=== PATIENT | male | born 1980 | race Hispanic/Latino ===

== ENCOUNTER 2017-11-06 07:56 | Emergency (ER) | payer SELFPAY ==
[2017-11-06 08:15] VITALS: BMI 47.3
[2017-11-06] MEDS ORDERED: TraMADol/Apap 37.5/325 mg Tab PO STA (08:39)
--- NOTE | 2017-11-06 08:47 | ED PDOC ---
Arrival/HPI - General Chief Complaint: Male Genitourinary Time Seen by Provider: 11/06/17 08:12 Historian: Patient - History of Present Illness Narrative History of Present Illness (Text): you were treated in the ED today for hx of kidney stones, recently was diagnosed with left sided 6mm stone with mild urine infection a few days ago in [place] with prescription for percocet, ciprofloxacin, flomax to help pass the stone but you have had some recurrent left sided pain, pain with urination and with nausea/vomiting without bile/blood and otherwise without any headache/ dizziness/difficulty breathing/chest pain/abdomen pain/numbness/tingling/loss of limb function/penile discharge/scrotal/testicular/penile pain. You refused sexual disease testing or treatment. 11/06/17 08:42 Time/Duration: Other (2 days) Past Medical History - Provider Review Nursing Documentation Reviewed: Yes - Travel History Have you recently traveled outside [place] w/in the past 3 mons?: No - Cardiac Hx Cardiac Disorders: Yes Hx Hypertension: Yes - Pulmonary Hx Respiratory Disorders: No - Neurological Hx Neurological Disorder: No - HEENT Hx HEENT Disorder: No - Renal Hx Renal Disorder: No - Endocrine/Metabolic Hx Endocrine Disorders: No - Hematological/Oncological Hx Blood Disorders: No - Integumentary Hx Dermatological Disorder: No - Musculoskeletal/Rheumatological Hx Musculoskeletal Disorders: No - Gastrointestinal Hx Gastrointestinal Disorders: No - Genitourinary/Gynecological Hx Genitourinary Disorders: Yes Other/Comment: kidney stone - Psychiatric Hx Psychophysiologic Disorder: No Hx Substance Use: No - Surgical History Hx Cardiac Catheterization: Yes Hx Coronary Stent: Yes Family/Social History - Physician Review Nursing Documentation Reviewed: Yes Family/Social History: No Known Family HX Smoking Status: cigar Hx Alcohol Use: Yes Frequency of alcohol use: Socially Hx Substance Use: No Allergies/Home Meds Allergies/Adverse Reactions: Allergies NSAIDS (Non-Steroidal Anti-Inflamma Allergy (Verified 11/06/17 08:10) URTICARIA Home Medications: Home Meds Medication Instructions Recorded Confirmed Acetaminophen [Tylenol 325mg tab] 325 mg PO PRN PRN 11/06/17 11/06/17 Atorvastatin [Lipitor] 40 mg PO DAILY 11/06/17 11/06/17 Ciprofloxacin [Cipro] 500 mg PO BID 11/06/17 11/06/17 Clopidogrel [Plavix] 75 mg PO DAILY 11/06/17 11/06/17 Lisinopril [Zestril] 5 mg PO DAILY 11/06/17 11/06/17 Tamsulosin [Flomax] 0.4 mg PO DAILY 11/06/17 11/06/17 oxyCODONE/Acetaminophen [Percocet 1 tab PO PRN PRN 11/06/17 11/06/17 5/325 mg Tab] Review of Systems - Review of Systems Constitutional: Normal Eyes: Normal ENT: Normal Respiratory: Normal Cardiovascular: Normal Gastrointestinal: Normal Genitourinary Male: Dysuria, Other (flank pain on the left) Musculoskeletal: Normal Skin: Normal Neurological: Normal Endocrine: Normal Hemo/Lymphatic: Normal Psychiatric: Normal Physical Exam Vital Signs Reviewed: Yes Vital Signs Temp Pulse Resp BP Pulse Ox 11/06/17 11:29 97.1 F L 79 22 123/74 99 11/06/17 08:15 97.8 F 85 18 132/82 98 Temperature: Afebrile Blood Pressure: Hypertensive Pulse: Regular Respiratory Rate: Normal Appearance: Positive for: Well-Appearing, Non-Toxic, Comfortable Pain Distress: None Mental Status: Positive for: Alert and Oriented X 3 - Systems Exam Head: Present: Atraumatic, Normocephalic Pupils: Present: PERRL Extroacular Muscles: Present: EOMI Conjunctiva: Present: Normal Ears: Present: Normal Mouth: Present: Moist Mucous Membranes Pharnyx: Present: Normal Nose (External): Present: Atraumatic Nose (Internal): Present: Normal Inspection Neck: Present: Normal Range of Motion Respiratory/Chest: Present: Clear to Auscultation, Good Air Exchange Cardiovascular: Present: Regular Rate and Rhythm Abdomen: No: Tenderness, Distention, Normal Bowel Sounds, Peritoneal Signs, Rebound, Guarding, McBurney's Point Tender, Rovsing's Sign Present, Hernias, Feeding Tubes, Ostomy Tubes, Mass/Organomegaly, Scars, Other Back: Present: Normal Inspection Upper Extremity: Present: Normal Inspection Lower Extremity: Present: Normal Inspection Neurological: Present: GCS=15, CN II-XII Intact, Speech Normal, Motor Func Grossly Intact Skin: Present: Warm, Dry, Normal Color Psychiatric: Present: Alert, Oriented x 3, Normal Insight, Normal Concentration Medical Decision Making ED Course and Treatment: you were treated in the ED today for hx of kidney stones, recently was diagnosed with left sided 6mm stone with mild urine infection a few days ago in [place] with prescription for percocet, ciprofloxacin, flomax to help pass the stone but you have had some recurrent left sided pain, pain with urination and with nausea/vomiting without bile/blood and otherwise without any headache/ dizziness/difficulty breathing/chest pain/abdomen pain/numbness/tingling/loss of limb function/penile discharge/scrotal/testicular/penile pain. You refused sexual disease testing or treatment. You were otherwise breathing easily, smiling and talking easily, good strength/sensation, walking easily, clear lungs , no abdomen or flank or back tenderness, no fever temp 97.8, stable heart rate 85, stable breathing rate 18, excellent oxygen level 98% room air, elevated blood pressure 132/82 which we recommend repeat in 2-3 days primary care office to determine further treatment, you have blood tests no infection count 3.3, stable blood level hemoglobin 12/platelets 210, stable chemistry, normal lipase 64, urine test trace sign of infection, ct abdomen/pelvis no acute findings, had a long discussion with you regarding labs/ct radiology testing and due to persistent symptoms completed, tramadol, zofran, morphine, requested additional pain medication and dilouded given, observation done in the ED with improvement , counselled to monitor symptoms and thus discharged home with safe ride as you stated your not driving. 1. Recommend continue your previously prescribed medications as directed. 2. recommend zofran as directed for nausea related symptoms. 3. Recommend follow-up primary care 1-2 days to review symptoms, referral to your urologist 1-2 days to review your symptoms/protein/blood in urine to ensure no complications. 4. If any worsening pain, fever, chills, nausea, vomiting, difficulty breathing, numbness, loss of limb function, pain with urination or any medical condition then return to the ED. 11/06/17 13:57 Reassessment Condition: Re-examined, Improved - Lab Interpretations Lab Results: 11/06/17 10:15 11/06/17 10:15 Lab Results 11/06/17 10:15: Sodium 144, Potassium 4.3, Chloride 105, Carbon Dioxide 32, Anion Gap 12, BUN 9, Creatinine 0.9, Est GFR ( Amer) > 60, Est GFR (Non- Af Amer) > 60, Random Glucose 80, Calcium 9.3, Total Bilirubin 0.6, AST 28, ALT 34, Alkaline Phosphatase 56, Total Protein 7.1, Albumin 4.1, Globulin 3.0, Albumin/Globulin Ratio 1.3, Lipase 64 11/06/17 10:15: Urine Color Light red, Urine Appearance Cloudy, Urine pH 6.0, Ur Specific [place] 1.020, Urine Protein 30 H, Urine Glucose (UA) Negative, Urine Ketones Negative, Urine Blood Large H, Urine Nitrate Negative, Urine Bilirubin Negative, Urine Urobilinogen 0.2, Ur Leukocyte Esterase Trace H, Urine RBC Tntc, Urine WBC 0 - 2, Ur Epithelial Cells 0 - 2, Urine Bacteria Trace 11/06/17 10:15: PT 12.2, INR 1.06, APTT 29.3 11/06/17 10:15: WBC 3.3 L, RBC 4.18, Hgb 12.1 L, Hct 35.6 L, MCV 85.2, MCH 28.9 , MCHC 34.0, RDW 15.1 H, Plt Count 210, MPV 9.6, Gran % 52.1, Lymph % (Auto) 30.7, Bertie % (Auto) 13.5 H, Eos % (Auto) 2.8, Baso % (Auto) 0.9, Gran # 1.70, Lymph # (Auto) 1.0 L, Bertie # (Auto) 0.4, Eos # (Auto) 0.1, Baso # (Auto) 0.03 I have reviewed the lab results: Yes - RAD Interpretation Radiology Orders: 11/06/17 10:12 ABD & PELVIS W/O PO OR IV CONT [CT] 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 No Sleep Is patient sleeping during reassessment? No Presence of Pain Presence of Pain Yes Pain Scale Used Pain Scale Used Numeric Description Description Intermittent Intensity of Pain at present 7 IVP Administration Document 11/06/17 11:40 FREDDIE (Rec: 11/06/17 11:40 FREDDIE [id number]) Charges for Administration # of IVP Administrations 1 Sodium Chloride (Sodium Chloride 0.9%) 1,000 mls @ 1,000 mls/hr IV .Q1H STA Stop: 11/06/17 11:11 Last Admin: 11/06/17 10:22 Dose: 1,000 mls/hr eMAR Start Stop Document 11/06/17 10:22 FREDDIE (Rec: 11/06/17 10:22 FREDDIE [email or web address]) Intravenous Solution Start Date 11/06/17 Start Time 10:22 End Date 11/06/17 End time 11:26 Total Infusion Time 64 Morphine Sulfate (Morphine) 2 mg IVP STAT STA Stop: 11/06/17 10:15 Last Admin: 11/06/17 10:23 Dose: 2 mg MAR Pain Assessment Document 11/06/17 10:23 FREDDIE (Rec: 11/06/17 10:23 FREDDIE [id number]) Pain Reassessment Is this a pain reassessment? No Sleep Is patient sleeping during reassessment? No Presence of Pain Presence of Pain Yes IVP Administration Document 11/06/17 10:23 FREDDIE (Rec: 11/06/17 10:23 FREDDIE [email or web address]) Charges for Administration # of IVP Administrations 1 Morphine Sulfate (Morphine) 2 mg IVP STAT STA Stop: 11/06/17 11:13 Last Admin: 11/06/17 11:25 Dose: Morphine Sulfate (Morphine) 2 mg IV STAT STA Stop: 11/06/17 11:15 Last Admin: 11/06/17 11:21 Dose: 2 mg eMAR Start Stop Document 11/06/17 11:21 SZAjit (Rec: 11/06/17 11:22 FREDDIE [email or web address]) Intravenous Solution Start Date 11/06/17 Start Time 11:22 End Date 11/06/17 End time 11:23 Total Infusion Time 1 MAR Pain Assessment Document 11/06/17 11:21 FREDDIE (Rec: 11/06/17 11:22 FREDDIE [email or web address]) Pain Reassessment Is this a pain reassessment? No Sleep Is patient sleeping during reassessment? No Presence of Pain Presence of Pain Yes Pain Scale Used Pain Scale Used Numeric Description Description Intermittent Intensity of Pain at present 6 Ondansetron HCl (Zofran Odt) 4 mg PO STAT STA Stop: 11/06/17 08:41 Last Admin: 11/06/17 09:00 Dose: 4 mg Ondansetron HCl (Zofran Inj) 4 mg IVP STAT STA Stop: 11/06/17 10:13 Last Admin: 11/06/17 10:23 Dose: 4 mg IVP Administration Document 11/06/17 10:23 FREDDIE (Rec: 11/06/17 10:23 FREDDIE [email or web address]) Charges for Administration # of IVP Administrations 1 Tramadol/Acetaminophen (Ultracet 37.5/325 Mg) 1 tab PO STAT STA Stop: 11/06/17 08:40 Last Admin: 11/06/17 09:00 Dose: 1 tab MAR Pain Assessment Document 11/06/17 09:00 FREDDIE (Rec: 11/06/17 09:20 FREDDIE [id number]) Pain Reassessment Is this a pain reassessment? No Sleep Is patient sleeping during reassessment? No Presence of Pain Presence of Pain Yes Disposition/Present on Arrival - Present on Arrival Any Indicators Present on Arrival: No History of DVT/PE: No History of Uncontrolled Diabetes: No Urinary Catheter: No History of Decub. Ulcer: No History Surgical Site Infection Following: None - Disposition Have Diagnosis and Disposition been Completed?: Yes Diagnosis: Flank pain Disposition: HOME/ ROUTINE Disposition Time: 13:58 Patient Plan: Discharge Condition: IMPROVED Discharge Instructions (ExitCare): Flank Pain Additional Instructions: you were treated in the ED today for hx of kidney stones, recently was diagnosed with left sided 6mm stone with mild urine infection a few days ago in [place] with prescription for percocet, ciprofloxacin, flomax to help pass the stone but you have had some recurrent left sided pain, pain with urination and with nausea/vomiting without bile/blood and otherwise without any headache/ dizziness/difficulty breathing/chest pain/abdomen pain/numbness/tingling/loss of limb function/penile discharge/scrotal/testicular/penile pain. You refused sexual disease testing or treatment. You were otherwise breathing easily, smiling and talking easily, good strength/sensation, walking easily, clear lungs , no abdomen or flank or back tenderness, no fever temp 97.8, stable heart rate 85, stable breathing rate 18, excellent oxygen level 98% room air, elevated blood pressure 132/82 which we recommend repeat in 2-3 days primary care office to determine further treatment, you have blood tests no infection count 3.3, stable blood level hemoglobin 12/platelets 210, stable chemistry, normal lipase 64, urine test trace sign of infection, ct abdomen/pelvis no acute findings, had a long discussion with you regarding labs/ct radiology testing and due to persistent symptoms completed, tramadol, zofran, morphine, requested additional pain medication and dilouded given, observation done in the ED with improvement , counselled to monitor symptoms and thus discharged home with safe ride as you stated your not driving. 1. Recommend continue your previously prescribed medications as directed. 2. recommend zofran as directed for nausea related symptoms. 3. Recommend follow-up primary care 1-2 days to review symptoms, referral to your urologist 1-2 days to review your symptoms/protein/blood in urine to ensure no complications. 4. If any worsening pain, fever, chills, nausea, vomiting, difficulty breathing, numbness, loss of limb function, pain with urination or any medical condition then return to the ED. Prescriptions: Ondansetron ODT [Zofran ODT] 4 mg PO Q8 PRN #20 odt PRN Reason: Nausea/Vomiting Referrals: Ramirez Rojas, [Primary Care Provider] - Follow up with primary Forms: RIWI (Croatian)
[2017-11-06] MEDS ORDERED: Sodium Chloride 0.9% 1,000 ML IV STA (10:12)
[2017-11-06] MEDS ORDERED: Morphine 4 mg/ml ISec IVP STA (10:14)
[2017-11-06 10:55] LABS: BASO # 0.03 K/mm3 (0.0-2.0); BASO % 0.9 % (0.0-3.0); EOS # 0.1 (0.0-0.7); EOS % 2.8 % (1.5-5.0); GRAN # 1.7 (1.4-6.5); GRAN % 52.1 % (50.0-68.0); HEMOGLOBIN 12.1 g/dL (14.0-18.0); LYMPH % 30.7 % (22.0-35.0); MEAN CELL VOLUME 85.2 fl (80.0-105.0); MEAN CORPUSCULAR HEMOGLOBIN 28.9 pg (25.0-35.0); MEAN PLATELET VOLUME 9.6 fl (7.0-11.0); MONO # 0.4 (0.1-0.6); MONO % 13.5 % (1.0-6.0); RBC 4.18 10^6/uL (3.5-6.1); RED CELL DISTRIBUTION WIDTH 15.1 % (11.5-14.5); WHITE BLOOD COUNT 3.3 10^3/ul (4.5-11.0)
[2017-11-06 10:57] LABS: INR 1.06 (0.93-1.08); PARTIAL THROMBOPLASTIN TIME 29.3 Seconds (25.1-36.5); PROTHROMBIN TIME 12.2 SECONDS (9.4-12.5)
[2017-11-06 11:00] LABS: ALB/GLOB RATIO 1.3 (1.1-1.8); ALBUMIN 4.1 g/dL (3.0-4.8); ALT/SGPT 34 U/L (7-56); AST/SGOT 28 U/L (17-59); BLOOD UREA NITROGEN 9 mg/dL (7-21); CALCIUM 9.3 mg/dL (8.4-10.5); GFR AFRICAN-AMERICAN > 60; GFR NON-AFRICAN AMERICAN > 60; LIPASE 64 U/L (23-300)
[2017-11-06 11:05] LABS: URINE BILIRUBIN NEGATIVE (NEGATIVE); URINE BLOOD LARGE (NEGATIVE); URINE GLUCOSE (UA) NEGATIVE (NEGATIVE); URINE LEUKOCYTE ESTERASE TRACE Leu/uL (NEGATIVE); URINE PROTEIN 30 mg/dL (<30 mg/dL); URINE UROBILINOGEN 0.2 E.U./dL (<1 E.U./dL)
[2017-11-06 11:06] LABS: URINE APPEARANCE CLOUDY (CLEAR); URINE COLOR LIGHT RED (YELLOW)
[2017-11-06] MEDS ORDERED: Morphine 2 mg/ml ISec IVP STA (11:12)
[2017-11-06] MEDS ORDERED: Morphine 4 mg/ml ISec IV STA (11:14)
[2017-11-06] MEDS ORDERED: HYDROmorphone 0.5 mg/0.5 ml ISec IVP STA ×2 (11:25→13:56)
[2017-11-06 11:37] LABS: URINE RBC TNTC /hpf (0-2)
[2017-11-06 11:38] LABS: URINE BACTERIA TRACE (NEG); URINE EPITHELIAL CELLS 0 - 2 /hpf (0-5); URINE WBC 0 - 2 /hpf (0-6)
--- NOTE | 2017-11-06 13:39 | CT ---
PROCEDURE: CT Abdomen and Pelvis without intravenous contrast HISTORY: 37yoM, hx of renal stones, with left flank pain. COMPARISON: None. TECHNIQUE: Without contrast.. Contrast Dose: Radiation dose: Total exam DLP = Total exam DLP = 1214 mGy-cm. This CT exam was performed using one or more of the following dose reduction techniques: Automated exposure control, adjustment of the mA and/or kV according to patient size, and/or use of iterative reconstruction technique. FINDINGS: LOWER THORAX: Unremarkable. LIVER: Unremarkable. No gross lesion or ductal dilatation. GALLBLADDER AND BILE DUCTS: Unremarkable. PANCREAS: Unremarkable. No gross lesion or ductal dilatation. SPLEEN: Unremarkable. ADRENALS: Unremarkable. No mass. KIDNEYS AND URETERS: Unremarkable. No hydronephrosis. No solid mass. VASCULATURE: Unremarkable. No aortic aneurysm. BOWEL: Unremarkable. No obstruction. No gross mural thickening. APPENDIX: Unremarkable. Normal appendix. PERITONEUM: Unremarkable. No free fluid. No free air. LYMPH NODES: Unremarkable. No enlarged lymph nodes. BLADDER: Unremarkable. REPRODUCTIVE: Unremarkable. BONES: No acute fracture. OTHER FINDINGS: None. IMPRESSION: No acute findings
[2017-11-06 14:29] VITALS: BP 112/77; PULSE 74; RESP 18; TEMP 98.2; O2SAT 100
== END 2017-11-06 14:41 | disposition home or self-care (01) ==
LOC: ED 07:56
DX: R10.9 Unspecified abdominal pain (principal); I10 Essential (primary) hypertension; F17.210 Nicotine dependence, cigarettes, uncomplicated
CPT/HCPCS: 74176; 80053; 81001; 83690; 85025; 85610; 85730; 87086; 96361; 96374; 96375; 96376; 99285; J1170; J2270; J2405; J7040

== ENCOUNTER 2017-11-10 15:25 | Observation (INO) | payer SELFPAY ==
[2017-11-10 15:26] VITALS: BMI 47.3
--- NOTE | 2017-11-10 15:31 | ED PDOC ---
Arrival/HPI - General Time Seen by Provider: 11/10/17 15:28 Historian: Patient - History of Present Illness Narrative History of Present Illness (Text): 11/10/17 15:31 37 y/o male, no significant pmh, allergic to nsaids, c/o Past Medical History - Cardiac Hx Cardiac Disorders: Yes Hx Hypertension: Yes - Pulmonary Hx Respiratory Disorders: No - Neurological Hx Neurological Disorder: No - HEENT Hx HEENT Disorder: No - Renal Hx Renal Disorder: No - Endocrine/Metabolic Hx Endocrine Disorders: No - Hematological/Oncological Hx Blood Disorders: No - Integumentary Hx Dermatological Disorder: No - Musculoskeletal/Rheumatological Hx Musculoskeletal Disorders: No - Gastrointestinal Hx Gastrointestinal Disorders: No - Genitourinary/Gynecological Hx Genitourinary Disorders: Yes Other/Comment: kidney stone - Psychiatric Hx Psychophysiologic Disorder: No Hx Substance Use: No - Surgical History Hx Cardiac Catheterization: Yes Hx Coronary Stent: Yes Family/Social History Smoking Status: cigar Hx Alcohol Use: Yes Hx Substance Use: No Allergies/Home Meds Allergies/Adverse Reactions: Allergies NSAIDS (Non-Steroidal Anti-Inflamma Allergy (Verified 11/06/17 08:10) URTICARIA Home Medications: Home Meds Medication Instructions Recorded Confirmed Acetaminophen [Tylenol 325mg tab] 325 mg PO PRN PRN 11/06/17 11/06/17 Atorvastatin [Lipitor] 40 mg PO DAILY 11/06/17 11/06/17 Ciprofloxacin [Cipro] 500 mg PO BID 11/06/17 11/06/17 Clopidogrel [Plavix] 75 mg PO DAILY 11/06/17 11/06/17 Lisinopril [Zestril] 5 mg PO DAILY 11/06/17 11/06/17 Tamsulosin [Flomax] 0.4 mg PO DAILY 11/06/17 11/06/17 oxyCODONE/Acetaminophen [Percocet 1 tab PO PRN PRN 11/06/17 11/06/17 5/325 mg Tab] Disposition/Present on Arrival - Present on Arrival History of DVT/PE: No History of Uncontrolled Diabetes: No Urinary Catheter: No History Surgical Site Infection Following: None - Disposition
[2017-11-10] MEDS ORDERED: Sodium Chloride 0.9% 1,000 ML IV STA ×2 (15:56→19:19)
[2017-11-10] MEDS ORDERED: cefTRIAXone 1 gm 1 GM/100 ML BAG IVPB STA (15:56)
[2017-11-10] MEDS ORDERED: Morphine 4 mg/ml ISec IVP STA (15:56)
--- NOTE | 2017-11-10 15:56 | ED PDOC ---
Arrival/HPI - General Chief Complaint: Male Genitourinary Time Seen by Provider: 11/10/17 15:28 Historian: Patient - History of Present Illness Narrative History of Present Illness (Text): 11/10/17 15:50 37 y/o male, pmh including uric acid renal stone, allergic to nsaids?, c/o lt. flank pain with urinary symptoms started today. Pt. stated that he was had a ureter stent placed by Dr. Inman (urologist) from the [facility] yesterday, discharge home with the bactrim ds which the urine culture from this ER with urine culture show +streptococcus which is sensitive to the rocephine and penicillin class, here today because he has lt. flank pain pain with urinary symptoms plus nausea/vomiting, no penile discharge, no fever or chills, no night sweat, no rash, no palpitation, no other medical or psychological complaints. Past Medical History - Provider Review Nursing Documentation Reviewed: Yes - Infectious Disease Hx of Infectious Diseases: None - Cardiac Hx Cardiac Disorders: Yes Hx Hypertension: Yes - Pulmonary Hx Respiratory Disorders: No - Neurological Hx Neurological Disorder: No - HEENT Hx HEENT Disorder: No - Renal Hx Renal Disorder: No - Endocrine/Metabolic Hx Endocrine Disorders: No - Hematological/Oncological Hx Blood Disorders: No - Integumentary Hx Dermatological Disorder: No - Musculoskeletal/Rheumatological Hx Musculoskeletal Disorders: No - Gastrointestinal Hx Gastrointestinal Disorders: No - Genitourinary/Gynecological Hx Genitourinary Disorders: Yes Other/Comment: kidney stone - Psychiatric Hx Psychophysiologic Disorder: No Hx Substance Use: No - Surgical History Hx Cardiac Catheterization: Yes Hx Coronary Stent: Yes - Anesthesia Hx Anesthesia: Yes Hx Anesthesia Reactions: No Hx Malignant Hyperthermia: No Family/Social History - Physician Review Nursing Documentation Reviewed: Yes Family/Social History: Unknown Family HX Smoking Status: Never Smoked Hx Alcohol Use: Yes Hx Substance Use: No Allergies/Home Meds Allergies/Adverse Reactions: Allergies NSAIDS (Non-Steroidal Anti-Inflamma Allergy (Verified 11/06/17 08:10) URTICARIA Home Medications: Home Meds Medication Instructions Recorded Confirmed Acetaminophen [Tylenol 325mg tab] 325 mg PO PRN PRN 11/06/17 11/10/17 Atorvastatin [Lipitor] 40 mg PO DAILY 11/06/17 11/10/17 Ciprofloxacin [Cipro] 500 mg PO BID 11/06/17 11/10/17 Clopidogrel [Plavix] 75 mg PO DAILY 11/06/17 11/10/17 Lisinopril [Zestril] 5 mg PO DAILY 11/06/17 11/10/17 Tamsulosin [Flomax] 0.4 mg PO DAILY 11/06/17 11/10/17 oxyCODONE/Acetaminophen [Percocet 1 tab PO PRN PRN 11/06/17 11/10/17 5/325 mg Tab] Review of Systems - Review of Systems Constitutional: absent: Fatigue, Fevers Eyes: absent: Vision Changes ENT: absent: Hearing Changes Respiratory: absent: SOB, Cough Cardiovascular: absent: Chest Pain Gastrointestinal: Nausea, Vomiting. absent: Abdominal Pain Genitourinary Male: Frequency. absent: Dysuria, Hematuria, Urinary Output Changes Musculoskeletal: Back Pain. absent: Arthralgias, Neck Pain, Joint Swelling Skin: absent: Rash, Pruritis Neurological: absent: Headache, Dizziness Psychiatric: absent: Anxiety, Depression Physical Exam Vital Signs Reviewed: Yes Vital Signs Temp Pulse Resp BP Pulse Ox 11/10/17 15:44 98.4 F 82 18 106/75 96 Temperature: Afebrile Blood Pressure: Normal Pulse: Regular Respiratory Rate: Normal Appearance: Positive for: Non-Toxic, Ill-Appearing, Uncomfortable Pain Distress: Severe Mental Status: Positive for: Alert and Oriented X 3 - Systems Exam Head: Present: Atraumatic, Normocephalic Pupils: Present: PERRL Extroacular Muscles: Present: EOMI Conjunctiva: Present: Normal Mouth: Present: Moist Mucous Membranes Neck: Present: Normal Range of Motion Respiratory/Chest: Present: Clear to Auscultation, Good Air Exchange. No: Respiratory Distress, Accessory Muscle Use Cardiovascular: Present: Regular Rate and Rhythm, Normal S1, S2. No: Murmurs Abdomen: Present: Normal Bowel Sounds. No: Tenderness, Distention, Peritoneal Signs, Rebound, Guarding Genitourinary Male: Present: Normal External Genitalia. No: Lesions, Penile Discharge, Testicle Tenderness, Penile Swelling, Testicle Swelling Back: Present: Normal Inspection, CVA Tenderness (left ). No: Midline Tenderness, Paraspinal Tenderness Upper Extremity: Present: Normal Inspection, Normal ROM. No: Cyanosis, Edema Lower Extremity: Present: Normal Inspection, Normal ROM. No: Edema, Deformity Neurological: Present: GCS=15, Speech Normal, Motor Func Grossly Intact, Gait Normal, Memory Normal Skin: Present: Warm, Dry, Normal Color. No: Rashes Psychiatric: Present: Alert, Oriented x 3, Normal Insight, Normal Concentration Medical Decision Making ED Course and Treatment: 11/10/17 16:04 -labs/ua -CT abdomen and pelvis -IV morphine/rocephine/zofran -observe and reassess 11/10/17 17:20 -Labs are non-significant -UA is pending but the urine culture from 4 days ago is positive for streptococcus -CT abdomen and pelvis: Left ureteral stent. No evidence of urinary calculus. Mild splenomegaly. Otherwise unremarkable examination. -Pt. received morphine and dilaudid with limited relief, not able to tolerate po , will admit for IV antibiotic and intractable pain. 11/10/17 17:32 -I spoke to the hospitalist Dr. Gutierrez and the director of graduate medical education, discussed about the case/labs/radiology result, agreed to keep the patient for observation and they will consult with the urologist. -I spoke to the ER attending Dr. Portillo, discussed about the case/labs radiology result, he will put in the admission order. - Lab Interpretations Lab Results: 11/10/17 16:54 11/10/17 16:54 Lab Results 11/10/17 16:54: WBC 4.8 D, RBC 4.84, Hgb 14.2 D, Hct 40.7 L, MCV 84.1, MCH 29.3, MCHC 34.9, RDW 15.2 H, Plt Count 262, MPV 9.3, Gran % 64.0, Lymph % (Auto ) 20.7 L, [place] % (Auto) 10.6 H, Eos % (Auto) 3.9, Baso % (Auto) 0.8, Gran # 3.08 , Lymph # (Auto) 1.0 L, [place] # (Auto) 0.5, Eos # (Auto) 0.2, Baso # (Auto) 0.04 11/10/17 16:54: Sodium 141, Potassium 4.1, Chloride 100, Carbon Dioxide 28, Anion Gap 18, BUN 14, Creatinine 1.0, Est GFR ( Amer) > 60, Est GFR (Non- Af Amer) > 60, Random Glucose 91, Calcium 10.3, Total Bilirubin 0.8, AST 27, ALT 29, Alkaline Phosphatase 81, Total Protein 8.2, Albumin 4.5, Globulin 3.7, Albumin/Globulin Ratio 1.2 I have reviewed the lab results: Yes - RAD Interpretation Radiology Orders: 11/10/17 15:56 ABD & PELVIS W/O PO OR IV CONT [CT] Stat LOWER THORAX: Unremarkable. LIVER: Unremarkable. No gross lesion or ductal dilatation. GALLBLADDER AND BILE DUCTS: Contracted. No calcified stones. PANCREAS: Unremarkable SPLEEN: Mild splenomegaly. The spleen measures 14.7 cm greatest dimension. No focal mass. ADRENALS: Unremarkable. No mass. KIDNEYS AND URETERS: Left ureteral stent. No hydronephrosis. No renal or ureteral calculus appreciated. Unremarkable right kidney. VASCULATURE: Unremarkable. No aortic aneurysm. BOWEL: Unremarkable. No obstruction. No gross mural thickening. APPENDIX: Unremarkable. Normal appendix. PERITONEUM: Unremarkable. No free fluid. No free air. LYMPH NODES: Unremarkable. No enlarged lymph nodes. BLADDER: Unremarkable. REPRODUCTIVE: Normal prostate BONES: No acute fracture. OTHER FINDINGS: None. IMPRESSION: Left ureteral stent. No evidence of urinary calculus. Mild splenomegaly. Otherwise unremarkable examination. 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) Pain Reassessment Is this a pain reassessment? No Presence of Pain Presence of Pain Yes Pain Scale Used Pain Scale Used Numeric Description Description Constant Intensity of Pain at present 10 Acceptable Level of Pain 0-6 IVP Administration Document 11/11/17 13:07 MORE (Rec: 11/11/17 13:[address] [id number]) Charges for Administration # of IVP Administrations 1 Ceftriaxone Sodium (Rocephin 1 Gram Ivpb) 1 gm in 100 mls @ 100 mls/hr IVPB DAILY [facility] PRN Reason: Protocol Last Admin: 11/11/17 09:26 Dose: 100 mls/hr eMAR Start Stop Document 11/11/17 09:26 MORE (Rec: 11/11/17 09:26 MORE [id number]) Intravenous Solution Start Date 11/11/17 Start Time 09:26 Lisinopril (Zestril) 5 mg PO DAILY [facility] Last Admin: 11/11/17 09:26 Dose: Not Given Non-Admin Reason: BP Parameters Not Met [facility] Pulse and Blood Pressure Document 11/11/17 09:26 MORE (Rec: 11/11/17 09:26 MORE [id number]) Pulse Pulse Rate (60-90) 59 Blood Pressure Blood Pressure (100/60-150/90) 108/59 Ondansetron HCl (Zofran Odt) 4 mg PO Q4H PRN PRN Reason: Nausea/Vomiting Pantoprazole Sodium (Protonix Ec Tab) 40 mg PO 0600 [facility] Last Admin: 11/11/17 05:07 Dose: Not Given Non-Admin Reason: Patient Refused Tamsulosin HCl (Flomax) 0.4 mg PO DAILY [facility] Last Admin: 11/11/17 09:21 Dose: 0.4 mg Discontinued Medications Hydromorphone HCl (Dilaudid) 1 mg IVP STAT STA Stop: 11/10/17 17:16 Last Admin: 11/10/17 17:24 Dose: 1 mg [facility] Pain Assessment Document 11/10/17 17:24 OCS (Rec: 11/10/17 17:24 [id number] Pain Reassessment Is this a pain reassessment? Yes Sleep Is patient sleeping during reassessment? No Presence of Pain Presence of Pain Yes Pain Scale Used Pain Scale Used Numeric Location Left, Right or Bilateral Left Pain Location Body Site Groin Description Description Constant Intensity of Pain at present 10 Pain Behavior Guarding Facial Grimacing Aggravating Factors ADL's IVP Administration Document 11/10/17 17:24 OCS (Rec: 11/10/17 17:24 OCS [id number]) Charges for Administration # of IVP Administrations 1 Re-Assess: [facility] Pain Assessment Document 11/10/17 19:40 KP (Rec: 11/11/17 04:22 [id number] Pain Reassessment Is this a pain reassessment? Yes Sleep Is patient sleeping during reassessment? No Presence of Pain Presence of Pain No Hydromorphone HCl (Dilaudid) 1 mg IVP Q4H PRN PRN Reason: Pain, severe (8-10) Last Admin: 11/11/17 09:19 Dose: 1 mg [facility] Pain Assessment Document 11/11/17 09:19 (Rec: 11/11/17 09:20 [id number]) Pain Reassessment Is this a pain reassessment? No Presence of Pain Presence of Pain Yes Pain Scale Used Pain Scale Used Numeric Location Left, Right or Bilateral Left Pain Location Body Site Abdomen Description Description Constant Intensity of Pain at present 10 Acceptable Level of Pain 0-7 Pain Behavior Facial Grimacing IVP Administration Document 11/11/17 09:19 MORE (Rec: 11/11/17 09:[address] [id number]) Charges for Administration # of IVP Administrations 1 Re-Assess: [facility] Pain Assessment Document 11/11/17 10:19 MORE (Rec: 11/11/17 13:[address] [id number]) Pain Reassessment Is this a pain reassessment? Yes Presence of Pain Presence of Pain Yes Pain Scale Used Pain Scale Used Numeric Description Intensity of Pain at present 4 Acceptable Level of Pain 0-6 Ceftriaxone Sodium (Rocephin 1 Gram Ivpb) 1 gm in 100 mls @ 200 mls/hr IVPB STAT STA PRN Reason: Protocol Stop: 11/10/17 16:25 Last Admin: 11/10/17 16:42 Dose: 200 mls/hr eMAR Start Stop Document 11/10/17 16:42 OCS (Rec: 11/10/17 16:42 OCS [id number]) Intravenous Solution Start Date 11/10/17 Start Time 16:42 End Date 11/10/17 End time 17:12 Total Infusion Time 30 Sodium Chloride (Sodium Chloride 0.9%) 1,000 mls @ 999 mls/hr IV .Q1H1M STA Stop: 11/10/17 16:56 Last Admin: 11/10/17 16:42 Dose: 999 mls/hr eMAR Start Stop Document 11/10/17 16:42 OCS (Rec: 11/10/17 16:43 OCS [id number]) Intravenous Solution Start Date 11/10/17 Start Time 16:42 End Date 11/10/17 End time 17:43 Total Infusion Time 61 Sodium Chloride (Sodium Chloride 0.9%) 1,000 mls @ 150 mls/hr IV .Q6H40M STA Stop: 11/11/17 01:58 Last Admin: 11/10/17 20:00 Dose: 150 mls/hr eMAR Start Stop Document 11/10/17 20:00 KP (Rec: 11/10/17 22:[address] [id number]) Intravenous Solution Start Date 11/10/17 Start Time 20:00 Morphine Sulfate (Morphine) 4 mg IVP STAT STA Stop: 11/10/17 15:57 Last Admin: 11/10/17 16:41 Dose: 4 mg [facility] Pain Assessment Document 11/10/17 16:41 OCS (Rec: 11/10/17 16:41 [id number] Pain Reassessment Is this a pain reassessment? No Sleep Is patient sleeping during reassessment? No Presence of Pain Presence of Pain Yes Pain Scale Used Pain Scale Used Numeric Location Left, Right or Bilateral Left Pain Location Body Site Groin Description Description Constant Aggravating Factors ADL's IVP Administration Document 11/10/17 16:41 OCS (Rec: 11/10/17 16:41 OCS [id number]) Charges for Administration # of IVP Administrations 1 Re-Assess: [facility] Pain Assessment Document 11/10/17 19:45 KP (Rec: 11/11/17 04:23 KP [id number]) Pain Reassessment Is this a pain reassessment? Yes Sleep Is patient sleeping during reassessment? No Presence of Pain Presence of Pain No Ondansetron HCl (Zofran Inj) 4 mg IVP STAT STA Stop: 11/10/17 16:01 Last Admin: 11/10/17 16:41 Dose: 4 mg IVP Administration Document 11/10/17 16:41 OCS (Rec: 11/10/17 16:41 OCS [id number]) Charges for Administration # of IVP Administrations 1 - PA / CUTTING MACHINE OPERATOR / Resident Statement MD/DO has reviewed & agrees with the documentation as recorded. Disposition/Present on Arrival - Present on Arrival Any Indicators Present on Arrival: No History of DVT/PE: No History of Uncontrolled Diabetes: No Urinary Catheter: No History of Decub. Ulcer: No History Surgical Site Infection Following: None - Disposition Have Diagnosis and Disposition been Completed?: Yes Diagnosis: Pyelonephritis, Intractable pain Disposition: HOSPITALIZED Disposition Time: 17:19 Patient Plan: Admission, Observation Patient Problems: Current Active Problems Problem Status Onset Intractable pain Acute Pyelonephritis Acute Condition: STABLE
[2017-11-10 17:09] LABS: BASO # 0.04 K/mm3 (0.0-2.0); BASO % 0.8 % (0.0-3.0); EOS # 0.2 (0.0-0.7); EOS % 3.9 % (1.5-5.0); GRAN # 3.08 (1.4-6.5); HEMOGLOBIN 14.2 g/dL (14.0-18.0); LYMPH % 20.7 % (22.0-35.0); MEAN CELL VOLUME 84.1 fl (80.0-105.0); MEAN CORPUSCULAR HEMOGLOBIN 29.3 pg (25.0-35.0); MEAN CORPUSCULAR HGB CONC 34.9 g/dl (31.0-37.0); MEAN PLATELET VOLUME 9.3 fl (7.0-11.0); MONO # 0.5 (0.1-0.6); MONO % 10.6 % (1.0-6.0); RBC 4.84 10^6/uL (3.5-6.1); RED CELL DISTRIBUTION WIDTH 15.2 % (11.5-14.5); WHITE BLOOD COUNT 4.8 10^3/ul (4.5-11.0)
--- NOTE | 2017-11-10 17:10 | CT ---
PROCEDURE: CT Abdomen and Pelvis without intravenous contrast HISTORY: lt. flank pain, lt. ureter sten? COMPARISON: 11/06/2017 TECHNIQUE: Without contrast.. Contrast Dose: 0 Radiation dose: Total exam DLP = Total exam DLP = 1224.86 mGy-cm. This CT exam was performed using one or more of the following dose reduction techniques: Automated exposure control, adjustment of the mA and/or kV according to patient size, and/or use of iterative reconstruction technique. FINDINGS: LOWER THORAX: Unremarkable. LIVER: Unremarkable. No gross lesion or ductal dilatation. GALLBLADDER AND BILE DUCTS: Contracted. No calcified stones. PANCREAS: Unremarkable SPLEEN: Mild splenomegaly. The spleen measures 14.7 cm greatest dimension. No focal mass. ADRENALS: Unremarkable. No mass. KIDNEYS AND URETERS: Left ureteral stent. No hydronephrosis. No renal or ureteral calculus appreciated. Unremarkable right kidney. VASCULATURE: Unremarkable. No aortic aneurysm. BOWEL: Unremarkable. No obstruction. No gross mural thickening. APPENDIX: Unremarkable. Normal appendix. PERITONEUM: Unremarkable. No free fluid. No free air. LYMPH NODES: Unremarkable. No enlarged lymph nodes. BLADDER: Unremarkable. REPRODUCTIVE: Normal prostate BONES: No acute fracture. OTHER FINDINGS: None. IMPRESSION: Left ureteral stent. No evidence of urinary calculus. Mild splenomegaly. Otherwise unremarkable examination.
[2017-11-10] MEDS ORDERED: HYDROmorphone 1 mg/ml ISec IVP STA (17:15)
[2017-11-10 17:26] LABS: ALB/GLOB RATIO 1.2 (1.1-1.8); ALBUMIN 4.5 g/dL (3.0-4.8); ALT/SGPT 29 U/L (7-56); AST/SGOT 27 U/L (17-59); BLOOD UREA NITROGEN 14 mg/dL (7-21); CALCIUM 10.3 mg/dL (8.4-10.5); GFR AFRICAN-AMERICAN > 60; GFR NON-AFRICAN AMERICAN > 60
--- NOTE | 2017-11-10 19:48 | CP.PCM.HP ---
<Romain Hair - Last Filed: 11/10/17 21:04> History of Present Illness - History of Present Illness History of Present Illness: This is a 37 year old gentleman with CAD with stent in LAD 18 months ago, recurent nephrolithiasis with ureteral stent placed yesterday from a urologist in [place]. The patient has a long standing history of kidney stones. He reports coming in to [facility] [facility] on Monday of this week for left flank pain and was discharged with PO ciprofloxacin for suspected UTI. Review of the CT A/P shows no stones or hydronephrosis on 11/10/17. He saw a urologist in [facility] yesterday and got a ureteral stent placed and was prescribed Bactrim DS prophylactically. He further reports that was supposed to have the stent removed at a later time some time in the coming week; however, due " intractable nausea and vomiting" he developed today he was advised by his urologist to go to the ED for suspected ureteral renal colic. In the ED, unfortunately, no urine was collected though the patient was given a dose of Ceftriaxone. The pateint denies fever, chills, but admits to left flank pain with urination. Chart review does indicate the patients urine culture on grew Streptococcus Parasanguinis in 50,000-100,000 CFU along with a UA at that time with small leukoesterase. The patient is now here for intractable nausea, vomiting, and flank pain. In the ED the patient never gave a sample of urine though he was admitted to the medical-surgical floor for "pyelonephritis. " PMH: Coronary artery disease with stent in the LAD, hypertension, renal stones PSH: Right biceps tendon surgery Allergies: NSAID Social: Smoker, drinks, denies illicit drug use Present on Admission - Present on Admission Any Indicators Present on Admission: No Review of Systems - Review of Systems All systems: reviewed and no additional remarkable complaints except (as per HPI ) Past Patient History - Infectious Disease Hx of Infectious Diseases: None - Past Social History Smoking Status: Never Smoked - CARDIAC Hx Cardiac Disorders: Yes Hx Hypertension: Yes - PULMONARY Hx Respiratory Disorders: No - NEUROLOGICAL Hx Neurological Disorder: No - HEENT Hx HEENT Problems: No - RENAL Hx Chronic Kidney Disease: No - ENDOCRINE/METABOLIC Hx Endocrine Disorders: No - HEMATOLOGICAL/ONCOLOGICAL Hx Blood Disorders: No - INTEGUMENTARY Hx Dermatological Problems: No - MUSCULOSKELETAL/RHEUMATOLOGICAL Hx Musculoskeletal Disorders: No - GASTROINTESTINAL Hx Gastrointestinal Disorders: No - GENITOURINARY/GYNECOLOGICAL Hx Genitourinary Disorders: Yes Other/Comment: kidney stone - PSYCHIATRIC Hx Psychophysiologic Disorder: No Hx Substance Use: No - SURGICAL HISTORY Hx Cardiac Catheterization: Yes Hx Coronary Stent: Yes - ANESTHESIA Hx Anesthesia: Yes Hx Anesthesia Reactions: No Hx Malignant Hyperthermia: No Meds Allergies/Adverse Reactions: Allergies Allergy/AdvReac Type Severity Reaction Status Date / Time NSAIDS (Non-Steroidal Allergy URTICARIA Verified 11/06/17 08:10 Anti-Inflamma Physical Exam - Constitutional Appears: Non-toxic, No Acute Distress - Head Exam Head Exam: ATRAUMATIC, NORMOCEPHALIC - Eye Exam Eye Exam: EOMI, Normal appearance - ENT Exam ENT Exam: Mucous Membranes Moist, Normal Oropharynx - Neck Exam Neck exam: Positive for: Normal Inspection - Respiratory Exam Respiratory Exam: Clear to Auscultation Bilateral, NORMAL BREATHING PATTERN. absent: Accessory Muscle Use - Cardiovascular Exam Cardiovascular Exam: RRR, +S1, +S2 - GI/Abdominal Exam GI & Abdominal Exam: Normal Bowel Sounds, Soft - Extremities Exam Extremities exam: Positive for: normal inspection. Negative for: calf tenderness Results - Vital Signs Recent Vital Signs: Last Vital Signs Temp 98.4 F 11/10/17 15:44 Pulse 82 11/10/17 15:44 Resp 18 11/10/17 15:44 BP 106/75 11/10/17 15:44 Pulse Ox 96 11/10/17 15:44 - Labs Result Diagrams: 11/10/17 16:54 11/10/17 16:54 Assessment & Plan - Assessment and Plan (Free Text) Assessment: 37 year old male with a past medical history of kidney stones, multiple admission for renal colic, reported history of CAD coming in with pain after ureteral stent placement. 1) Ureteral stent irritation with possible migration - Morphine 4 mg q4h PRN - Urology consult - UA, mid stream catch to be performed - Urology consulted, Dr. Magdi Medellin 2) CAD - Continue with Aspirin and Plavix 3) Hypertension - Lisinopril 5 mg 4) Drug seeking with the constellation of symptoms of allergy to NSAID, unconfirmable CAD, refusing morphine - Patient was offered morphine IV q4h for pain control. 5) DVT/GI prophylaxis - SCD/Protonix Plan: Case reviewed and discussed with Dr. Moreno - Date & Time Date: 11/10/17 Time: 20:57 <Morenita Moreno - Last Filed: 11/11/17 06:12> Results - Vital Signs Recent Vital Signs: Last Vital Signs Temp 98.4 F 11/10/17 15:44 Pulse 82 11/10/17 15:44 Resp 18 11/10/17 20:00 BP 106/75 11/10/17 15:44 Pulse Ox 96 11/10/17 15:44 - Labs Result Diagrams: 11/10/17 16:54 11/10/17 16:54 Labs: Laboratory Results - last 24 hr 11/10/17 11/10/17 21:23 21:23 Urine Color Light red Urine Appearance Cloudy Urine pH 6.0 Ur Specific [place] 1.025 Urine Protein 100 H Urine Glucose (UA) Negative Urine Ketones Negative Urine Blood Large H Urine Nitrate Negative Urine Bilirubin Negative Urine Urobilinogen 1.0 H Ur Leukocyte Esterase Trace H Urine RBC Tntc Urine WBC 1 - 3 Ur Epithelial Cells 1 - 3 Urine Bacteria Few Urine Opiates Screen Positive H Urine Methadone Screen Negative Ur Barbiturates Screen Negative Ur Phencyclidine Scrn Negative Ur Amphetamines Screen Negative U Benzodiazepines Scrn Negative U Oth Cocaine Metabols Negative U Cannabinoids Screen Negative Attending/Attestation - Attestation I have personally seen and examined this patient.: Yes I have fully participated in the care of the patient.: Yes I have reviewed all pertinent clinical information: Yes Notes (Text): 11/11/17 06:11 Patient was seen when he was in bed # 566-01. Agree with history, physical examination, assessment and plan.
[2017-11-10] MEDS ORDERED: Morphine 4 mg/ml ISec IVP PRN (20:17)
[2017-11-10 21:49] LABS: URINE BILIRUBIN NEGATIVE (NEGATIVE); URINE BLOOD LARGE (NEGATIVE); URINE GLUCOSE (UA) NEGATIVE (NEGATIVE); URINE LEUKOCYTE ESTERASE TRACE Leu/uL (NEGATIVE); URINE PROTEIN 100 mg/dL (<30 mg/dL)
[2017-11-10 21:53] LABS: URINE APPEARANCE CLOUDY (CLEAR); URINE COLOR LIGHT RED (YELLOW)
[2017-11-10] MEDS: HYDROmorphone 1 mg/ml ISec IVP PRN (21:58)
[2017-11-10 22:01] LABS: URINE RBC TNTC /hpf (0-2)
[2017-11-10 22:03] LABS: URINE BACTERIA FEW (NEG)
[2017-11-10 22:08] LABS: BARBITURATES, UR NEGATIVE (NEGATIVE); BENZODIAZEPINES, UR NEGATIVE (NEGATIVE); OPIATES, UR POSITIVE (NEGATIVE); PHENCYCLIDINE, UR NEGATIVE (NEGATIVE)
[2017-11-11] MEDS: HYDROmorphone 1 mg/ml ISec IVP PRN ×3 (01:28→09:19)
[2017-11-11] MEDS ORDERED: Morphine 2 mg/ml ISec IVP PRN (05:00)
[2017-11-11] MEDS ORDERED: Pantoprazole 40 mg EC Tab PO SCH (06:00)
[2017-11-11 08:00] VITALS: RESP 20; TEMP 97.6; O2SAT 99
[2017-11-11] MEDS ORDERED: cefTRIAXone 1 gm 1 GM/100 ML BAG IVPB SCH (10:00)
[2017-11-11] MEDS ORDERED: HYDROmorphone 1 mg/ml ISec IVP PRN (12:53)
[2017-11-11 16:14] VITALS: BP 130/79; PULSE 75
--- NOTE | 2017-11-11 16:35 | CP.PCM.DIS ---
<ShayleeBunny - Last Filed: 11/11/17 16:15> Provider - Provider Date of Admission: 11/10/17 17:36 Attending physician: Shantelle Gutierrez MD Consults: Uro: Lacie Time Spent in preparation of Discharge (in minutes): 65 Diagnosis - Discharge Diagnosis (1) Urinary tract infection Status: Acute Priority: Medium (2) Pain due to ureteral stent Status: Acute Priority: Medium Hospital Course - Lab Results Lab Results: Most Recent Lab Values WBC 4.8 10^3/ul (4.5-11.0) D 11/10/17 16:54 RBC 4.84 10^6/uL (3.5-6.1) 11/10/17 16:54 Hgb 14.2 g/dL (14.0-18.0) D 11/10/17 16:54 Hct 40.7 % (42.0-52.0) L 11/10/17 16:54 MCV 84.1 fl (80.0-105.0) 11/10/17 16:54 MCH 29.3 pg (25.0-35.0) 11/10/17 16:54 MCHC 34.9 g/dl (31.0-37.0) 11/10/17 16:54 RDW 15.2 % (11.5-14.5) H 11/10/17 16:54 Plt Count 262 10^3/uL (120.0-450.0) 11/10/17 16:54 MPV 9.3 fl (7.0-11.0) 11/10/17 16:54 Gran % 64.0 % (50.0-68.0) 11/10/17 16:54 Lymph % (Auto) 20.7 % (22.0-35.0) L 11/10/17 16:54 [place] % (Auto) 10.6 % (1.0-6.0) H 11/10/17 16:54 Eos % (Auto) 3.9 % (1.5-5.0) 11/10/17 16:54 Baso % (Auto) 0.8 % (0.0-3.0) 11/10/17 16:54 Gran # 3.08 (1.4-6.5) 11/10/17 16:54 Lymph # (Auto) 1.0 (1.2-3.4) L 11/10/17 16:54 [place] # (Auto) 0.5 (0.1-0.6) 11/10/17 16:54 Eos # (Auto) 0.2 (0.0-0.7) 11/10/17 16:54 Baso # (Auto) 0.04 K/mm3 (0.0-2.0) 11/10/17 16:54 Sodium 141 mmol/L (132-148) 11/10/17 16:54 Potassium 4.1 mmol/L (3.6-5.0) 11/10/17 16:54 Chloride 100 mmol/L (98-107) 11/10/17 16:54 Carbon Dioxide 28 mmol/L (21-33) 11/10/17 16:54 Anion Gap 18 (10-20) 11/10/17 16:54 BUN 14 mg/dL (7-21) 11/10/17 16:54 Creatinine 1.0 mg/dl (0.8-1.5) 11/10/17 16:54 Est GFR ( Amer) > 60 11/10/17 16:54 Est GFR (Non-Af Amer) > 60 11/10/17 16:54 Random Glucose 91 mg/dL (70-110) 11/10/17 16:54 Calcium 10.3 mg/dL (8.4-10.5) 11/10/17 16:54 Total Bilirubin 0.8 mg/dL (0.2-1.3) 11/10/17 16:54 AST 27 U/L (17-59) 11/10/17 16:54 ALT 29 U/L (7-56) 11/10/17 16:54 Alkaline Phosphatase 81 U/L (38-126) 11/10/17 16:54 Total Protein 8.2 g/dL (5.8-8.3) 11/10/17 16:54 Albumin 4.5 g/dL (3.0-4.8) 11/10/17 16:54 Globulin 3.7 gm/dL 11/10/17 16:54 Albumin/Globulin Ratio 1.2 (1.1-1.8) 11/10/17 16:54 Urine Color Light red (YELLOW) 11/10/17 21:23 Urine Appearance Cloudy (CLEAR) 11/10/17 21:23 Urine pH 6.0 (4.7-8.0) 11/10/17 21:23 Ur Specific [place] 1.025 (1.005-1.035) 11/10/17 21:23 Urine Protein 100 mg/dL (<30 mg/dL) H 11/10/17 21:23 Urine Glucose (UA) Negative mg/dL (NEGATIVE) 11/10/17 21:23 Urine Ketones Negative mg/dL (NEGATIVE) 11/10/17 21:23 Urine Blood Large (NEGATIVE) H 11/10/17 21:23 Urine Nitrate Negative (NEGATIVE) 11/10/17 21:23 Urine Bilirubin Negative (NEGATIVE) 11/10/17 21:23 Urine Urobilinogen 1.0 E.U./dL (<1 E.U./dL) H 11/10/17 21:23 Ur Leukocyte Esterase Trace Afy/uL (NEGATIVE) H 11/10/17 21:23 Urine RBC Tntc /hpf (0-2) 11/10/17 21:23 Urine WBC 1 - 3 /hpf (0-6) 11/10/17 21:23 Ur Epithelial Cells 1 - 3 /hpf (0-5) 11/10/17 21:23 Urine Bacteria Few (NEG) 11/10/17 21:23 Urine Opiates Screen Positive (NEGATIVE) H 11/10/17 21:23 Urine Methadone Screen Negative (NEGATIVE) 11/10/17 21:23 Ur Barbiturates Screen Negative (NEGATIVE) 11/10/17 21:23 Ur Phencyclidine Scrn Negative (NEGATIVE) 11/10/17 21:23 Ur Amphetamines Screen Negative (NEGATIVE) 11/10/17 21:23 U Benzodiazepines Scrn Negative (NEGATIVE) 11/10/17 21:23 U Oth Cocaine Metabols Negative (NEGATIVE) 11/10/17 21:23 U Cannabinoids Screen Negative (NEGATIVE) 11/10/17 21:23 - Hospital Course Hospital Course: This is a 37 year old gentleman with CAD with stent in LAD 18 months ago, recurent nephrolithiasis with ureteral stent placed yesterday from a urologist in [place] (Per patient, Dr. Mike Inman at [facility]). CT A/P in the ER showed the presence of the stent, without signs of obstruction, migration, or perinephric stranding. On a previous ER visit a few days prior, patient did have a urine culture which grew almeida-sensitive strep parasanguinis. Patient was complaining of severe renal colic, nausea, vomiting, and hematuria. Patient was admitted and treated for suspected pyelonephritis (CVA tenderness on exam with previous urine culture positive) with intractable pain, nausea, and vomiting. Throughout admission, patient was demanding escalation of his pain regimen, until he finally had adequate analgesia with dilaudid 1mg Q4. Today, patient's pain, nausea, and vomiting were improving, and his dilaudid was decreased to 0.5mg Q4. Patient again had angry outburst and was demanding reescalation. Patients urologist (Dr. Inman) was contacted, who reported that this is not his patient, but he is a known malingerer in his hospital system, always presenting with the same complaints demanding narcotics. CT of the abdomen was reviewed with Dr. Medellin who again confirmed that the stent was in place, had not migrated, and did not appear to be obstructed, and he recommended outpatient follow up for stent removal. Upon confrontation, patient reported that it was not Dr. Inman who had placed the stent, but "maybe one of his partners" and that he got his previous prescription of oxycodone from [place], as his name did not show up for [place] or [facility] site. Today, patient still has some pain, reportedly controlled with dilaudid. Per nursing staff, patient completed his entire lunch tray without vomiting without the use of antiemetics. Patient denies nausea. Patient is agreeable to go home without a new prescription for narcotics, and agrees with plan to continue PO antibiotics based on prior sensitivities, and to follow up with his urologist within the next week. All questions were answered to his satisfaction, and he was discharged to home. Discharge Exam - Head Exam Head Exam: ATRAUMATIC, NORMOCEPHALIC - Eye Exam Eye Exam: EOMI, Normal appearance, PERRL - ENT Exam ENT Exam: Mucous Membranes Moist - Neck Exam Neck exam: Full Rom, Normal Inspection - Respiratory Exam Respiratory Exam: Clear to PA & Lateral, NORMAL BREATHING PATTERN - Cardiovascular Exam Cardiovascular Exam: RRR, +S1, +S2 - GI/Abdominal Exam GI & Abdominal Exam: Normal Bowel Sounds, Soft. absent: Distended, Firm, Guarding, Rebound, Rigid, Tenderness - Extremities Exam Extremities exam: normal inspection - Back Exam Back exam: CVA tenderness (L). absent: CVA tenderness (R) - Neurological Exam Neurological exam: Alert, CN II-XII Intact, Oriented x3 - Psychiatric Exam Psychiatric exam: Agitated, Normal Affect, Normal Mood - Skin Skin Exam: Dry, Intact Discharge Plan - Discharge Medications Prescriptions: Cephalexin [Keflex] 500 mg PO Q12 #14 capsule - Follow Up Plan Condition: STABLE Disposition: HOME/ ROUTINE Instructions: Urinary Tract Infection, Adult ([place]), Ureteral Stent ([place]) Additional Instructions: 1. Continue to take Keflex 500mg orally twice daily for 7 days 2. Follow up with your urologist within one week 3. Continue to take all other medications as previously prescribed 4. For any new or worsening concerns, contact your PCP immediately or return to the ER <Shantelle Gutierrez - Last Filed: 11/12/17 16:02> Provider - Provider Date of Admission: 11/10/17 17:36 Attending physician: Shantelle Gutierrez MD Hospital Course - Lab Results Lab Results: Micro Results 11/10/17 21:23 Urine Urine Culture - Final Most Recent Lab Values WBC 4.8 10^3/ul (4.5-11.0) D 11/10/17 16:54 RBC 4.84 10^6/uL (3.5-6.1) 11/10/17 16:54 Hgb 14.2 g/dL (14.0-18.0) D 11/10/17 16:54 Hct 40.7 % (42.0-52.0) L 11/10/17 16:54 MCV 84.1 fl (80.0-105.0) 11/10/17 16:54 MCH 29.3 pg (25.0-35.0) 11/10/17 16:54 MCHC 34.9 g/dl (31.0-37.0) 11/10/17 16:54 RDW 15.2 % (11.5-14.5) H 11/10/17 16:54 Plt Count 262 10^3/uL (120.0-450.0) 11/10/17 16:54 MPV 9.3 fl (7.0-11.0) 11/10/17 16:54 Gran % 64.0 % (50.0-68.0) 11/10/17 16:54 Lymph % (Auto) 20.7 % (22.0-35.0) L 11/10/17 16:54 [place] % (Auto) 10.6 % (1.0-6.0) H 11/10/17 16:54 Eos % (Auto) 3.9 % (1.5-5.0) 11/10/17 16:54 Baso % (Auto) 0.8 % (0.0-3.0) 11/10/17 16:54 Gran # 3.08 (1.4-6.5) 11/10/17 16:54 Lymph # (Auto) 1.0 (1.2-3.4) L 11/10/17 16:54 [place] # (Auto) 0.5 (0.1-0.6) 11/10/17 16:54 Eos # (Auto) 0.2 (0.0-0.7) 11/10/17 16:54 Baso # (Auto) 0.04 K/mm3 (0.0-2.0) 11/10/17 16:54 Sodium 141 mmol/L (132-148) 11/10/17 16:54 Potassium 4.1 mmol/L (3.6-5.0) 11/10/17 16:54 Chloride 100 mmol/L (98-107) 11/10/17 16:54 Carbon Dioxide 28 mmol/L (21-33) 11/10/17 16:54 Anion Gap 18 (10-20) 11/10/17 16:54 BUN 14 mg/dL (7-21) 11/10/17 16:54 Creatinine 1.0 mg/dl (0.8-1.5) 11/10/17 16:54 Est GFR ( Amer) > 60 11/10/17 16:54 Est GFR (Non-Af Amer) > 60 11/10/17 16:54 Random Glucose 91 mg/dL (70-110) 11/10/17 16:54 Calcium 10.3 mg/dL (8.4-10.5) 11/10/17 16:54 Total Bilirubin 0.8 mg/dL (0.2-1.3) 11/10/17 16:54 AST 27 U/L (17-59) 11/10/17 16:54 ALT 29 U/L (7-56) 11/10/17 16:54 Alkaline Phosphatase 81 U/L (38-126) 11/10/17 16:54 Total Protein 8.2 g/dL (5.8-8.3) 11/10/17 16:54 Albumin 4.5 g/dL (3.0-4.8) 11/10/17 16:54 Globulin 3.7 gm/dL 11/10/17 16:54 Albumin/Globulin Ratio 1.2 (1.1-1.8) 11/10/17 16:54 Urine Color Light red (YELLOW) 11/10/17 21:23 Urine Appearance Cloudy (CLEAR) 11/10/17 21:23 Urine pH 6.0 (4.7-8.0) 11/10/17 21:23 Ur Specific [place] 1.025 (1.005-1.035) 11/10/17 21:23 Urine Protein 100 mg/dL (<30 mg/dL) H 11/10/17 21:23 Urine Glucose (UA) Negative mg/dL (NEGATIVE) 11/10/17 21:23 Urine Ketones Negative mg/dL (NEGATIVE) 11/10/17 21:23 Urine Blood Large (NEGATIVE) H 11/10/17 21:23 Urine Nitrate Negative (NEGATIVE) 11/10/17 21:23 Urine Bilirubin Negative (NEGATIVE) 11/10/17 21:23 Urine Urobilinogen 1.0 E.U./dL (<1 E.U./dL) H 11/10/17 21:23 Ur Leukocyte Esterase Trace Fay/uL (NEGATIVE) H 11/10/17 21:23 Urine RBC Tntc /hpf (0-2) 11/10/17 21:23 Urine WBC 1 - 3 /hpf (0-6) 11/10/17 21:23 Ur Epithelial Cells 1 - 3 /hpf (0-5) 11/10/17 21:23 Urine Bacteria Few (NEG) 11/10/17 21:23 Urine Opiates Screen Positive (NEGATIVE) H 11/10/17 21:23 Urine Methadone Screen Negative (NEGATIVE) 11/10/17 21:23 Ur Barbiturates Screen Negative (NEGATIVE) 11/10/17 21:23 Ur Phencyclidine Scrn Negative (NEGATIVE) 11/10/17 21:23 Ur Amphetamines Screen Negative (NEGATIVE) 11/10/17 21:23 U Benzodiazepines Scrn Negative (NEGATIVE) 11/10/17 21:23 U Oth Cocaine Metabols Negative (NEGATIVE) 11/10/17 21:23 U Cannabinoids Screen Negative (NEGATIVE) 11/10/17 21:23 Attending/Attestation - Attestation I have personally seen and examined this patient.: Yes I have fully participated in the care of the patient.: Yes I have reviewed all pertinent clinical information, including history, physical exam and plan: Yes Notes (Text): 11/11/17 37 year old male with past medical history of CAD s/p stent and history of nephrolithiasis s/p recent ureteral stent earlier this week from a urologist in [place] presented with flank pain and nausea/vomiting. CT abd/pelvis was obtained which showed presence of stent without any signs of obstruction or stones. He was started on antibiotics after reviewing his prior Ucx. He was on analgesics and antiemetics. Case was discussed with Dr. Medellin as well as Dr. Inman (his private urologist) who both recommended outpatient follow up. Overall his symptoms improved. He is discharged home to follow up with urology. Shantelle Gutierrez MD Hospitalist.
[2017-11-11] MEDS ORDERED: Oxycodone/Acetaminophen 5/325 mg Tab PO PRN (17:04)
== END 2017-11-11 18:39 | disposition home or self-care (01) ==
LOC: ED 15:25 → ERH 17:36 → 5RNO 18:23
PROVIDERS: ADMIT Internal Medicine; ATTEND Internal Medicine
DX: N10 Acute pyelonephritis (principal); I10 Essential (primary) hypertension; N20.0 Calculus of kidney; T83.84XA Pain due to genitourinary prosthetic devices, implants and grafts, initial encounter; Y83.8 Other surgical procedures as the cause of abnormal reaction of the patient, or of later complication, without mention of misadventure at the time of the procedure; I25.10 Atherosclerotic heart disease of native coronary artery without angina pectoris; F17.200 Nicotine dependence, unspecified, uncomplicated; Z76.5 Malingerer [conscious simulation]; Z95.5 Presence of coronary angioplasty implant and graft
CPT/HCPCS: 74176; 80053; 81001; 85025; 87086; 96361; 96365; 96375; 96376; 99285; G0378; G0480; J0696; J1170; J2270; J2405; J7040

== ENCOUNTER 2017-11-13 20:03 | Inpatient (IN) | payer SELFPAY ==
[2017-11-13] MEDS ORDERED: Sodium Chloride 0.9% 1,000 ML IV STA (21:25)
--- NOTE | 2017-11-13 21:25 | ED PDOC ---
Arrival/HPI - General Chief Complaint: GI Problem Time Seen by Provider: 11/13/17 20:42 Historian: Patient - History of Present Illness Narrative History of Present Illness (Text): 11/13/17 21:29 Pt is a 37 yr old male, with past medical history of uric acid renal stone, s/p stent placement and recent admission for intractable uretal pain, presents to the ED with continuous left side flank pain that has continued since his discharge 2 days ago causing him to vomit more than 8x today alone. States that he cannot rest at home without pain; percocet and zofran do not work. Denies groin pain, chest pain, shortness of breath, fever, dysuria, diarrhea, or any other complaints. Time/Duration: < week Symptom Onset: Gradual Symptom Course: Unchanged Quality: Aching, Pressure, Stabbing Severity Level: Moderate Activities at Onset: Rest Context: Home Past Medical History - Provider Review Nursing Documentation Reviewed: Yes - Travel History Have you recently traveled outside [place] w/in the past 3 mons?: No - Infectious Disease Hx of Infectious Diseases: None - Cardiac Hx Cardiac Disorders: Yes Hx Hypertension: Yes - Pulmonary Hx Respiratory Disorders: No - Neurological Hx Neurological Disorder: No - HEENT Hx HEENT Disorder: No - Renal Hx Renal Disorder: No - Endocrine/Metabolic Hx Endocrine Disorders: No - Hematological/Oncological Hx Blood Disorders: No - Integumentary Hx Dermatological Disorder: No - Musculoskeletal/Rheumatological Hx Musculoskeletal Disorders: No - Gastrointestinal Hx Gastrointestinal Disorders: No - Genitourinary/Gynecological Hx Genitourinary Disorders: Yes Other/Comment: kidney stone - Psychiatric Hx Psychophysiologic Disorder: No Hx Substance Use: No - Surgical History Hx Cardiac Catheterization: Yes Hx Coronary Stent: Yes - Anesthesia Hx Anesthesia: Yes Hx Anesthesia Reactions: No Hx Malignant Hyperthermia: No Family/Social History - Physician Review Nursing Documentation Reviewed: Yes Family/Social History: No Known Family HX Smoking Status: cigar Hx Alcohol Use: Yes Hx Substance Use: No Allergies/Home Meds Allergies/Adverse Reactions: Allergies NSAIDS (Non-Steroidal Anti-Inflamma Allergy (Verified 11/06/17 08:10) URTICARIA Home Medications: Home Meds Medication Instructions Recorded Confirmed Acetaminophen [Tylenol 325mg tab] 325 mg PO PRN PRN 11/06/17 11/13/17 Atorvastatin [Lipitor] 40 mg PO DAILY 11/06/17 11/13/17 Clopidogrel [Plavix] 75 mg PO DAILY 11/06/17 11/13/17 Lisinopril [Zestril] 5 mg PO DAILY 11/06/17 11/13/17 Tamsulosin [Flomax] 0.4 mg PO DAILY 11/06/17 11/13/17 oxyCODONE/Acetaminophen [Percocet 1 tab PO PRN PRN 11/06/17 11/13/17 5/325 mg Tab] Review of Systems - Review of Systems Constitutional: Normal Eyes: Normal ENT: Normal Respiratory: Normal Cardiovascular: Normal Gastrointestinal: Normal Genitourinary Male: Normal. absent: Dysuria, Frequency, Hematuria, Urinary Output Changes, Other Musculoskeletal: Back Pain (left sided LBP with referral to the [facility]) Skin: Normal Neurological: Normal Endocrine: Normal Hemo/Lymphatic: Normal Psychiatric: Normal Physical Exam Vital Signs Reviewed: Yes Vital Signs Temp Pulse Resp BP Pulse Ox 11/14/17 02:03 69 18 106/66 98 11/14/17 00:03 66 18 112/63 97 11/13/17 22:03 97.9 F 68 18 115/65 96 11/13/17 20:24 63 18 118/64 99 Temperature: Afebrile Blood Pressure: Normal Pulse: Regular Respiratory Rate: Normal Appearance: Positive for: Non-Toxic, Uncomfortable Pain Distress: Moderate Mental Status: Positive for: Alert and Oriented X 3 - Systems Exam Head: Present: Atraumatic, Normocephalic Pupils: Present: PERRL Extroacular Muscles: Present: EOMI Conjunctiva: Present: Normal Mouth: Present: Moist Mucous Membranes Neck: Present: Normal Range of Motion Respiratory/Chest: Present: Clear to Auscultation, Good Air Exchange. No: Respiratory Distress, Accessory Muscle Use Cardiovascular: Present: Regular Rate and Rhythm, Normal S1, S2. No: Murmurs Abdomen: Present: Tenderness (left sided LBP with referral to the [facility]), Normal Bowel Sounds. No: Distention, Peritoneal Signs, Rebound, Guarding, McBurney's Point Tender, Rovsing's Sign Present, Hernias, Feeding Tubes, Ostomy Tubes, Mass /Organomegaly, Scars, Other Back: Present: Normal Inspection Upper Extremity: Present: Normal Inspection. No: Cyanosis, Edema Lower Extremity: Present: Normal Inspection. No: Edema Neurological: Present: GCS=15, CN II-XII Intact, Speech Normal Skin: Present: Warm, Dry, Normal Color. No: Rashes Psychiatric: Present: Alert, Oriented x 3, Normal Insight, Normal Concentration Medical Decision Making ED Course and Treatment: 11/13/17 21:34 Pt is a 37 yr old male, with past medical history of uric acid renal stone, s/p stent placement and recent admission for intractable uretal pain, presents to the ED with continuous left side flank pain that has continued since his dc 2 days ago causing him to vomit more than 8x today alone. No CVA tenderness, point tenderness on the left flank; the rest of the exam is benign Plan fluids, pain management assess and dispo Progress Note Morphine 4 mg ivp, dilaudid 3 mg ivp and pyridium; no change in pain status discussed case with Dr. Vasquez; given failure to respond to pain management, pt needs to be admitted overnight for observation spoke with resident and Dr. Moreno for confirmation pt informed and will require uro consult in the am 11/14/17 01:10 - Lab Interpretations I have reviewed the lab results: Yes - Medication Orders Current Medication Orders: Discontinued Medications Acetaminophen (Tylenol 325mg Tab) 650 mg PO Q4H PRN PRN Reason: Pain, Mild (1-3) Atorvastatin Calcium (Lipitor) 40 mg PO DAILY [facility] Last Admin: 11/14/17 10:05 Dose: Not Given Non-Admin Reason: Patient Refused Cephalexin Monohydrate (Keflex) 500 mg PO Q12 [facility] PRN Reason: Protocol Last Admin: 11/14/17 10:05 Dose: Not Given Non-Admin Reason: Patient Refused Clopidogrel Bisulfate (Plavix) 75 mg PO DAILY [facility] Last Admin: 11/14/17 10:05 Dose: Not Given Non-Admin Reason: Patient Refused Diphenhydramine HCl (Benadryl) 25 mg PO STAT STA Stop: 11/14/17 02:49 Last Admin: 11/14/17 03:00 Dose: 25 mg Hydromorphone HCl (Dilaudid) 2 mg IVP STAT STA Stop: 11/13/17 23:52 Last Admin: 11/14/17 00:04 Dose: 2 mg MAR Pain Assessment Document 11/14/17 00:04 JOL (Rec: 11/14/17 00:05 JOL [id number]) Pain Reassessment Is this a pain reassessment? Yes Sleep Is patient sleeping during reassessment? No Presence of Pain Presence of Pain Yes Pain Scale Used Pain Scale Used Numeric Description Intensity of Pain at present 9 IVP Administration Document 11/14/17 00:04 JOL (Rec: 11/14/17 00:05 JOL [id number]) Charges for Administration # of IVP Administrations 1 Hydromorphone HCl (Dilaudid) 1 mg IVP STAT STA Stop: 11/14/17 02:49 Last Admin: 11/14/17 03:00 Dose: 1 mg MAR Pain Assessment Document 11/14/17 03:00 TTC (Rec: 11/14/17 03:00 [facility] [id number]) Pain Reassessment Is this a pain reassessment? Yes Sleep Is patient sleeping during reassessment? No Presence of Pain Presence of Pain Yes Location Left, Right or Bilateral Bilateral Pain Location Body Site Abdomen IVP Administration Document 11/14/17 03:00 TTC (Rec: 11/14/17 03:00 [facility] [id number]) Charges for Administration # of IVP Administrations 1 Sodium Chloride (Sodium Chloride 0.9%) 1,000 mls @ 999 mls/hr IV .Q1H1M STA Stop: 11/13/17 22:25 Last Admin: 11/13/17 21:51 Dose: 999 mls/hr eMAR Start Stop Document 11/13/17 21:51 JOL (Rec: 11/13/17 21:52 JOL [id number]) Intravenous Solution Start Date 11/13/17 Start Time 21:30 End Date 11/13/17 End time 22:30 Total Infusion Time 60 Sodium Chloride (Sodium Chloride 0.9%) 1,000 mls @ 150 mls/hr IV .Q6H40M [facility] Last Admin: 11/14/17 02:10 Dose: 150 mls/hr eMAR Start Stop Document 11/14/17 02:10 JOL (Rec: 11/14/17 02:32 JOL [id number]) Intravenous Solution Start Date 11/14/17 Start Time 02:10 Lisinopril (Zestril) 5 mg PO DAILY [facility] Last Admin: 11/14/17 10:06 Dose: Not Given Non-Admin Reason: Patient Refused Metoclopramide HCl (Reglan) 10 mg IVP STAT STA Stop: 11/13/17 21:27 Last Admin: 11/13/17 21:53 Dose: Not Given Non-Admin Reason: Patient Refused Morphine Sulfate (Morphine) 2 mg IVP STAT STA Stop: 11/13/17 21:28 Last Admin: 11/13/17 21:30 Dose: 2 mg MAR Pain Assessment Document 11/13/17 21:30 JOL (Rec: 11/13/17 21:52 JOL [id number]) Pain Reassessment Is this a pain reassessment? No Sleep Is patient sleeping during reassessment? No Presence of Pain Presence of Pain Yes Pain Scale Used Pain Scale Used Numeric Description Intensity of Pain at present 9 IVP Administration Document 11/13/17 21:30 JOL (Rec: 11/13/17 21:52 JOL [id number]) Charges for Administration # of IVP Administrations 1 Morphine Sulfate (Morphine) 2 mg IVP STAT STA Stop: 11/13/17 22:29 Ondansetron HCl (Zofran Inj) 8 mg IVP STAT STA Stop: 11/13/17 22:21 Last Admin: 11/13/17 21:55 Dose: 8 mg IVP Administration Document 11/13/17 21:55 JOL (Rec: 11/13/17 22:27 JOL [id number]) Charges for Administration # of IVP Administrations 1 Ondansetron HCl (Zofran Inj) 4 mg IVP Q4H PRN PRN Reason: Nausea/Vomiting Oxycodone/Acetaminophen (Percocet 10/325 Mg Tab) 1 tab PO STAT STA Stop: 11/14/17 13:47 Last Admin: 11/14/17 14:03 Dose: 1 tab MAR Pain Assessment Document 11/14/17 14:03 SML (Rec: 11/14/17 14:03 SML [id number]) Pain Reassessment Is this a pain reassessment? No Sleep Is patient sleeping during reassessment? No Presence of Pain Presence of Pain Yes Location Pain Location Body Site Abdomen Pantoprazole Sodium (Protonix Inj) 40 mg IVP DAILY [facility] Last Admin: 11/14/17 10:06 Dose: Not Given Non-Admin Reason: Patient Refused Phenazopyridine HCl (Pyridium) 200 mg PO STAT STA Stop: 11/13/17 23:55 Last Admin: 11/14/17 00:04 Dose: 200 mg Phenazopyridine HCl (Pyridium) [address] [facility] Last Admin: 11/14/17 14:16 Dose: Not Given Non-Admin Reason: Patient Refused Tamsulosin HCl (Flomax) 0.4 mg PO DAILY [facility] Last Admin: 11/14/17 10:05 Dose: Not Given Non-Admin Reason: Patient Refused Disposition/Present on Arrival - Present on Arrival Any Indicators Present on Arrival: Yes History of DVT/PE: No History of Uncontrolled Diabetes: No Urinary Catheter: No History of Decub. Ulcer: No History Surgical Site Infection Following: None - Disposition Have Diagnosis and Disposition been Completed?: Yes Diagnosis: Intractable abdominal pain, Urinary tract infection, Pain due to ureteral stent Disposition: HOSPITALIZED Disposition Time: 01:13 Patient Plan: Admission Condition: UNKNOWN
[2017-11-13] MEDS ORDERED: Morphine 4 mg/ml ISec IVP STA (21:26)
[2017-11-13] MEDS ORDERED: Morphine 2 mg/ml ISec IVP STA (21:27)
[2017-11-13] MEDS ORDERED: Morphine 2 mg/2 mL syringe ONE (21:32)
[2017-11-13] MEDS ORDERED: HYDROmorphone 1 mg/ml ISec IVP PRN (22:13)
[2017-11-13] MEDS ORDERED: Morphine 2 mg/2 mL syringe IVP STA (22:28)
[2017-11-13] MEDS ORDERED: HYDROmorphone 1 mg/ml ISec IVP STA (23:51)
[2017-11-14] MEDS ORDERED: Oxycodone/Acetaminophen 5/325 mg Tab PO PRN ×2 (01:39→02:00)
[2017-11-14] MEDS ORDERED: HYDROmorphone 1 mg/ml ISec IVP PRN (01:39)
[2017-11-14] MEDS ORDERED: Sodium Chloride 0.9% 1,000 ML IV SCH (01:45)
--- NOTE | 2017-11-14 02:05 | CP.PCM.HP ---
<Stevenson Biswas - Last Filed: 11/14/17 01:50> History of Present Illness - History of Present Illness History of Present Illness: CC: Flank pain Pt is a 37 yo M with PMH of CAD s/p stent of mid-LAD, HTN, HLD, and recurrent nephrolithiasis [place] [facility] due to intractable left flank pain. Patient had stent placed in left ureter on 11/09/17 in [place] due to a 7-8 mm ureter stone. Pt states that stone was removed via lithotripsy, but stent was placed due to ureteral inflammation. Pt was admitted to [facility] on 11/10/17 due to intractable left flank pain, nausea, and vomiting. Patient was discharged the day after and intstructed to follow up with his urologist in [place]. Patient was also given a 7 day course of Keflex due to UTI found on UA, which he has completed 2 days of. Pt states that pain was relatively unchanged on discharge and has worsened up until today. Pt complains of intermittent nausea and vomiting 2/2 left flank pain that radiates down left groin as well as hematuria and dysuria. Pt denies any discharge. Pt states that he has a follow up visit with his urologist on Monday11/15/17 for removal of the stent, but due to increasing pain was advised to proceed to ED by his urologist. Pt denied CP, SOB , fever, chills, DARLING, or dizziness. PMD: Devaughn PMH: CAD s/p stent of mid-LAD, HTN, HLD, and recurrent nephrolithiasis PSH: Right biceps tendon surgery, cardiac catherization All: NSAIDs SH: 2 cigars/day for 18 yrs, social EtOH use, denies illicit drug use FHx: CAD Medications as per MAR Present on Admission - Present on Admission Any Indicators Present on Admission: No Review of Systems - Review of Systems Review of Systems: 12 point ROS reviewed and is negative other than what is stated in HPI. Past Patient History - Infectious Disease Hx of Infectious Diseases: None - Past Social History Smoking Status: cigar - CARDIAC Hx Cardiac Disorders: Yes Hx Hypertension: Yes - PULMONARY Hx Respiratory Disorders: No - NEUROLOGICAL Hx Neurological Disorder: No - HEENT Hx HEENT Problems: No - RENAL Hx Chronic Kidney Disease: No - ENDOCRINE/METABOLIC Hx Endocrine Disorders: No - HEMATOLOGICAL/ONCOLOGICAL Hx Blood Disorders: No - INTEGUMENTARY Hx Dermatological Problems: No - MUSCULOSKELETAL/RHEUMATOLOGICAL Hx Musculoskeletal Disorders: No - GASTROINTESTINAL Hx Gastrointestinal Disorders: No - GENITOURINARY/GYNECOLOGICAL Hx Genitourinary Disorders: Yes Other/Comment: kidney stone - PSYCHIATRIC Hx Psychophysiologic Disorder: No Hx Substance Use: No - SURGICAL HISTORY Hx Cardiac Catheterization: Yes Hx Coronary Stent: Yes - ANESTHESIA Hx Anesthesia: Yes Hx Anesthesia Reactions: No Hx Malignant Hyperthermia: No Meds Allergies/Adverse Reactions: Allergies Allergy/AdvReac Type Severity Reaction Status Date / Time NSAIDS (Non-Steroidal Allergy URTICARIA Verified 11/06/17 08:10 Anti-Inflamma Physical Exam - Constitutional Appears: In Acute Distress - Head Exam Head Exam: NORMAL INSPECTION - Eye Exam Eye Exam: Normal appearance - ENT Exam ENT Exam: Normal Exam - Neck Exam Neck exam: Positive for: Normal Inspection - Respiratory Exam Respiratory Exam: Clear to Auscultation Bilateral. absent: Rales, Rhonchi, Wheezes - Cardiovascular Exam Cardiovascular Exam: RRR, +S1, +S2. absent: Diastolic murmur, Gallop, Rubs, Systolic Murmur - GI/Abdominal Exam GI & Abdominal Exam: Soft. absent: Distended, Guarding, Rebound, Tenderness - Extremities Exam Extremities exam: Positive for: normal inspection - Back Exam Back exam: CVA tenderness (L). absent: CVA tenderness (R), paraspinal tenderness - Neurological Exam Neurological exam: Alert, CN II-XII Intact, Oriented x3 - Psychiatric Exam Psychiatric exam: Normal Affect, Normal Mood - Skin Skin Exam: Dry, Intact, Normal Color, Warm Results - Vital Signs Recent Vital Signs: Last Vital Signs Temp Pulse 63 11/13/17 20:24 Resp 18 11/13/17 20:24 BP 118/64 11/13/17 20:24 Pulse Ox 99 11/13/17 20:24 Assessment & Plan - Assessment and Plan (Free Text) Assessment: 37 yo M with PMH of CAD s/p stent of mid-LAD, HTN, HLD, and recurrent nephrolithiasis admitted for intractable left flank pain. Plan: 1. Intractable left flank pain 2/2 left ureteral stent - Tylenol and Percocet prn - Pyridium daily - Flomax daily - NPO except for medications - NS at 150 cc/hr - F/u abdominal US - Urology consulted 2. UTI - Cont Keflex BID, 5 days remaining 3. CAD s/p stent - Cont ASA, Plavix 4. HTN - Cont Lisinopril 5. HLD - Cont Lipitor GI/DVT PPx - Protonix - SCDs Pt seen and discussed in detail with Dr. Moreno. Francesco Biswas, PGY1 <Morenita Moreno - Last Filed: 11/14/17 05:58> Results - Vital Signs Recent Vital Signs: Last Vital Signs Temp 97.9 F 11/13/17 22:03 Pulse 69 11/14/17 02:03 Resp 18 11/14/17 02:03 BP 106/66 11/14/17 02:03 Pulse Ox 98 11/14/17 02:03 - Labs Result Diagrams: 11/14/17 01:50 11/14/17 01:50 Labs: Laboratory Results - last 24 hr 11/14/17 11/14/17 01:50 01:50 WBC 4.4 L RBC 4.65 Hgb 13.6 L Hct 39.4 L MCV 84.7 MCH 29.2 MCHC 34.5 RDW 15.2 H Plt Count 244 MPV 8.9 Gran % 54.8 Lymph % (Auto) 29.3 [place] % (Auto) 10.9 H Eos % (Auto) 4.1 Baso % (Auto) 0.9 Gran # 2.42 Lymph # (Auto) 1.3 [place] # (Auto) 0.5 Eos # (Auto) 0.2 Baso # (Auto) 0.04 Sodium 140 Potassium 3.9 Chloride 104 Carbon Dioxide 26 Anion Gap 14 BUN 12 Creatinine 1.2 Est GFR ( Amer) > 60 Est GFR (Non-Af Amer) > 60 Random Glucose 99 Calcium 9.7 Total Bilirubin 0.6 AST 28 ALT 33 Alkaline Phosphatase 80 Total Protein 7.6 Albumin 4.2 Globulin 3.4 Albumin/Globulin Ratio 1.2 Attending/Attestation - Attestation I have personally seen and examined this patient.: Yes I have fully participated in the care of the patient.: Yes I have reviewed all pertinent clinical information: Yes Notes (Text): 11/14/17 05:57 Patient was seen when he was in the ER in bed # 18. Agree with history , physical examination,assessment and plan.
[2017-11-14 02:14] LABS: BASO # 0.04 K/mm3 (0.0-2.0); BASO % 0.9 % (0.0-3.0); EOS # 0.2 (0.0-0.7); EOS % 4.1 % (1.5-5.0); GRAN # 2.42 (1.4-6.5); GRAN % 54.8 % (50.0-68.0); HEMOGLOBIN 13.6 g/dL (14.0-18.0); LYMPH # 1.3 (1.2-3.4); LYMPH % 29.3 % (22.0-35.0); MEAN CELL VOLUME 84.7 fl (80.0-105.0); MEAN CORPUSCULAR HEMOGLOBIN 29.2 pg (25.0-35.0); MEAN CORPUSCULAR HGB CONC 34.5 g/dl (31.0-37.0); MEAN PLATELET VOLUME 8.9 fl (7.0-11.0); MONO # 0.5 (0.1-0.6); MONO % 10.9 % (1.0-6.0); RBC 4.65 10^6/uL (3.5-6.1); RED CELL DISTRIBUTION WIDTH 15.2 % (11.5-14.5); WHITE BLOOD COUNT 4.4 10^3/ul (4.5-11.0)
[2017-11-14 02:25] LABS: ALB/GLOB RATIO 1.2 (1.1-1.8); ALBUMIN 4.2 g/dL (3.0-4.8); ALT/SGPT 33 U/L (7-56); AST/SGOT 28 U/L (17-59); BLOOD UREA NITROGEN 12 mg/dL (7-21); CALCIUM 9.7 mg/dL (8.4-10.5); GFR AFRICAN-AMERICAN > 60; GFR NON-AFRICAN AMERICAN > 60
[2017-11-14 02:28] VITALS: O2SAT 98
[2017-11-14] MEDS ORDERED: HYDROmorphone 1 mg/ml ISec IVP STA (02:48)
[2017-11-14 06:38] VITALS: BP 107/62; PULSE 72; RESP 19; TEMP 98.1; BMI 14.8
[2017-11-14] MEDS ORDERED: Oxycodone/Acetaminophen 10/325 mg Tab PO STA (13:46)
--- NOTE | 2017-11-14 17:04 | CP.PCM.DIS ---
<Romain Hair - Last Filed: 11/14/17 17:06> Provider - Provider Date of Admission: 11/14/17 01:13 Attending physician: Kassy Power MD Primary care physician: Bernice Cantor MD Consults: Dr. Jacobsen Time Spent in preparation of Discharge (in minutes): 35 Hospital Course - Lab Results Lab Results: Most Recent Lab Values WBC 4.4 10^3/ul (4.5-11.0) L 11/14/17 01:50 RBC 4.65 10^6/uL (3.5-6.1) 11/14/17 01:50 Hgb 13.6 g/dL (14.0-18.0) L 11/14/17 01:50 Hct 39.4 % (42.0-52.0) L 11/14/17 01:50 MCV 84.7 fl (80.0-105.0) 11/14/17 01:50 MCH 29.2 pg (25.0-35.0) 11/14/17 01:50 MCHC 34.5 g/dl (31.0-37.0) 11/14/17 01:50 RDW 15.2 % (11.5-14.5) H 11/14/17 01:50 Plt Count 244 10^3/uL (120.0-450.0) 11/14/17 01:50 MPV 8.9 fl (7.0-11.0) 11/14/17 01:50 Gran % 54.8 % (50.0-68.0) 11/14/17 01:50 Lymph % (Auto) 29.3 % (22.0-35.0) 11/14/17 01:50 [place] % (Auto) 10.9 % (1.0-6.0) H 11/14/17 01:50 Eos % (Auto) 4.1 % (1.5-5.0) 11/14/17 01:50 Baso % (Auto) 0.9 % (0.0-3.0) 11/14/17 01:50 Gran # 2.42 (1.4-6.5) 11/14/17 01:50 Lymph # (Auto) 1.3 (1.2-3.4) 11/14/17 01:50 [place] # (Auto) 0.5 (0.1-0.6) 11/14/17 01:50 Eos # (Auto) 0.2 (0.0-0.7) 11/14/17 01:50 Baso # (Auto) 0.04 K/mm3 (0.0-2.0) 11/14/17 01:50 Sodium 140 mmol/L (132-148) 11/14/17 01:50 Potassium 3.9 mmol/L (3.6-5.0) 11/14/17 01:50 Chloride 104 mmol/L (98-107) 11/14/17 01:50 Carbon Dioxide 26 mmol/L (21-33) 11/14/17 01:50 Anion Gap 14 (10-20) 11/14/17 01:50 BUN 12 mg/dL (7-21) 11/14/17 01:50 Creatinine 1.2 mg/dl (0.8-1.5) 11/14/17 01:50 Est GFR ( Amer) > 60 11/14/17 01:50 Est GFR (Non-Af Amer) > 60 11/14/17 01:50 Random Glucose 99 mg/dL (70-110) 11/14/17 01:50 Calcium 9.7 mg/dL (8.4-10.5) 11/14/17 01:50 Total Bilirubin 0.6 mg/dL (0.2-1.3) 11/14/17 01:50 AST 28 U/L (17-59) 11/14/17 01:50 ALT 33 U/L (7-56) 11/14/17 01:50 Alkaline Phosphatase 80 U/L (38-126) 11/14/17 01:50 Total Protein 7.6 g/dL (5.8-8.3) 11/14/17 01:50 Albumin 4.2 g/dL (3.0-4.8) 11/14/17 01:50 Globulin 3.4 gm/dL 11/14/17 01:50 Albumin/Globulin Ratio 1.2 (1.1-1.8) 11/14/17 01:50 - Hospital Course Hospital Course: 37 year old male with past medical history of CAD s/p stent and history of nephrolithiasis s/p recent ureteral stent earlier this week from a urologist in [place] presented with flank pain and nausea/vomiting. CT abd/pelvis was obtained which showed presence of stent without any signs of obstruction or stones. He was started on antibiotics after reviewing his prior Ucx. He was on analgesics and antiemetics. Case was discussed with Dr. Medellin as well as Dr. Inman (his private urologist) who both recommended outpatient follow up. Patient's pain was adequately treated. He refused to give a urine sample. He is a known malingerer. He denied any pyuria, dysuria, fever, or chills. He was discharged with the below written instructions and asked to continue with his most recently prescribed antibiotic course. - Date & Time of H&P Date of H&P: 11/14/17 Time of H&P: 11:10 Discharge Exam - Head Exam Head Exam: NORMAL INSPECTION - Eye Exam Eye Exam: EOMI, Normal appearance - ENT Exam ENT Exam: Mucous Membranes Moist, Normal Oropharynx - Neck Exam Neck exam: Normal Inspection - Respiratory Exam Respiratory Exam: Clear to PA & Lateral, NORMAL BREATHING PATTERN - Cardiovascular Exam Cardiovascular Exam: RRR, +S1, +S2 - GI/Abdominal Exam GI & Abdominal Exam: Normal Bowel Sounds, Unremarkable - Extremities Exam Extremities exam: normal inspection - Back Exam Back exam: NORMAL INSPECTION. absent: CVA tenderness (L), CVA tenderness (R) - Neurological Exam Neurological exam: Alert, CN II-XII Intact, Oriented x3 - Psychiatric Exam Psychiatric exam: Normal Affect, Normal Mood - Skin Skin Exam: Dry, Intact, Normal Color, Warm Discharge Plan - Follow Up Plan Condition: UNKNOWN Disposition: HOME/ ROUTINE Instructions: Nausea and Vomiting, Adult (DC), Ureteral Stent (DC), Abdominal Pain (ED) Additional Instructions: 1) Patient to follow up with urologist that placed ureteral stent. 2) Patient to follow up with PMD within one week. Referrals: Bernice Cantor MD [Primary Care Provider] - <Kassy Power - Last Filed: 11/15/17 16:12> Provider - Provider Date of Admission: 11/14/17 01:13 Attending physician: Kassy Power MD Primary care physician: Berncie Cantor MD Hospital Course - Lab Results Lab Results: Most Recent Lab Values WBC 4.4 10^3/ul (4.5-11.0) L 11/14/17 01:50 RBC 4.65 10^6/uL (3.5-6.1) 11/14/17 01:50 Hgb 13.6 g/dL (14.0-18.0) L 11/14/17 01:50 Hct 39.4 % (42.0-52.0) L 11/14/17 01:50 MCV 84.7 fl (80.0-105.0) 11/14/17 01:50 MCH 29.2 pg (25.0-35.0) 11/14/17 01:50 MCHC 34.5 g/dl (31.0-37.0) 11/14/17 01:50 RDW 15.2 % (11.5-14.5) H 11/14/17 01:50 Plt Count 244 10^3/uL (120.0-450.0) 11/14/17 01:50 MPV 8.9 fl (7.0-11.0) 11/14/17 01:50 Gran % 54.8 % (50.0-68.0) 11/14/17 01:50 Lymph % (Auto) 29.3 % (22.0-35.0) 11/14/17 01:50 [place] % (Auto) 10.9 % (1.0-6.0) H 11/14/17 01:50 Eos % (Auto) 4.1 % (1.5-5.0) 11/14/17 01:50 Baso % (Auto) 0.9 % (0.0-3.0) 11/14/17 01:50 Gran # 2.42 (1.4-6.5) 11/14/17 01:50 Lymph # (Auto) 1.3 (1.2-3.4) 11/14/17 01:50 [place] # (Auto) 0.5 (0.1-0.6) 11/14/17 01:50 Eos # (Auto) 0.2 (0.0-0.7) 11/14/17 01:50 Baso # (Auto) 0.04 K/mm3 (0.0-2.0) 11/14/17 01:50 Sodium 140 mmol/L (132-148) 11/14/17 01:50 Potassium 3.9 mmol/L (3.6-5.0) 11/14/17 01:50 Chloride 104 mmol/L (98-107) 11/14/17 01:50 Carbon Dioxide 26 mmol/L (21-33) 11/14/17 01:50 Anion Gap 14 (10-20) 11/14/17 01:50 BUN 12 mg/dL (7-21) 11/14/17 01:50 Creatinine 1.2 mg/dl (0.8-1.5) 11/14/17 01:50 Est GFR ( Amer) > 60 11/14/17 01:50 Est GFR (Non-Af Amer) > 60 11/14/17 01:50 Random Glucose 99 mg/dL (70-110) 11/14/17 01:50 Calcium 9.7 mg/dL (8.4-10.5) 11/14/17 01:50 Total Bilirubin 0.6 mg/dL (0.2-1.3) 11/14/17 01:50 AST 28 U/L (17-59) 11/14/17 01:50 ALT 33 U/L (7-56) 11/14/17 01:50 Alkaline Phosphatase 80 U/L (38-126) 11/14/17 01:50 Total Protein 7.6 g/dL (5.8-8.3) 11/14/17 01:50 Albumin 4.2 g/dL (3.0-4.8) 11/14/17 01:50 Globulin 3.4 gm/dL 11/14/17 01:50 Albumin/Globulin Ratio 1.2 (1.1-1.8) 11/14/17 01:50 Attending/Attestation - Attestation I have personally seen and examined this patient.: Yes I have fully participated in the care of the patient.: Yes I have reviewed all pertinent clinical information, including history, physical exam and plan: Yes Notes (Text): 11/15/17 16:08 Patient was seen and examined with electromedical equipment repairer. Agreed with assessment and plan. 37 year old male with past medical history of CAD s/p stent and history of nephrolithiasis s/p recent ureteral stent earlier presented with flank pain and nausea/vomiting. He had similar admision last week. CT abd/pelvis at that time showed presence of stent without any signs of obstruction or stones. He was evaluated by Urology and was cleared for duscharge.Patient does not looks to be in Pain, he has drug abuse history and is non refusing diagnostic work up and is demanding Narcotics.This was discussed in detail with him.He will be discharged and will follow up with his Urologist.
== END 2017-11-14 15:37 | disposition home or self-care (01) | DRG 699 ==
LOC: ED 20:03 → ERH 11-14 01:13 → 3RNO 11-14 02:42
PROVIDERS: ADMIT Internal Medicine; ATTEND Internal Medicine
DX: T83.84XA Pain due to genitourinary prosthetic devices, implants and grafts, initial encounter (principal); N39.0 Urinary tract infection, site not specified; I25.10 Atherosclerotic heart disease of native coronary artery without angina pectoris; I10 Essential (primary) hypertension; R11.2 Nausea with vomiting, unspecified; E78.5 Hyperlipidemia, unspecified; Y83.8 Other surgical procedures as the cause of abnormal reaction of the patient, or of later complication, without mention of misadventure at the time of the procedure; Z87.442 Personal history of urinary calculi; Z95.5 Presence of coronary angioplasty implant and graft; Z76.5 Malingerer [conscious simulation]